=== PATIENT | male | born 1980 | race Caucasian/White ===

== ENCOUNTER 2016-12-06 00:10 | Inpatient (IN) | payer OTHER ==
[~2016-12-06] VITALS: Ht 170.2 cm; Wt 98.0 kg
[2016-12-06 00:18] VITALS: BP 151/101
--- NOTE | 2016-12-06 01:12 | NUR ---
PT TAKEN TO BED 7
--- NOTE | 2016-12-06 01:17 | NUR ---
PT IS A 36 Y/O MALE BIB FAM[facility] C/O LEFT FLANK PAIN X 3 WEEKS. PAIN OF 10/10 AND RADIATING TO THE FRONT AND THE BACK. STATED HX OF KIDNEY STONE. A&OX4. PERRL. BILATERAL LUNGS CLEAR. ALL EXTREMITIES ACTIVIE RANGE OF MOTION WNR. BOWEL SOUNDS HEARD FROM ALL QUADS. ER MADE AWARE.
--- NOTE | 2016-12-06 02:12 | NUR ---
Dr. Huber evaluating patient at bedside.
[2016-12-06] MEDS ORDERED: NACL 0.9% 1,000 ML IV ONE ×3 (02:15→03:45)
[2016-12-06] MEDS ORDERED: ONDANSETRON 4 MG/2 ML VIAL IVP ONE (02:15)
[2016-12-06] MEDS ORDERED: MORPHINE SULFATE 4 MG/ML SYR IVP ONE (02:15)
[2016-12-06 02:48] LABS: BASOPHILS # (AUTO) 0.2 K/uL (0.00-0.22); BASOPHILS % (AUTO) 1.8 % (0.0-2.0); EOSINOPHILS # (AUTO) 0.2 K/uL (0-0.4); EOSINOPHILS % (AUTO) 1.7 % (0.0-4.0); HEMATOCRIT 45.6 % (36-52); HEMOGLOBIN 15.3 g/dL (12.0-18.0); LYMPHOCYTES % (AUTO) 18.3 % (20.5-51.1); MEAN CORPUSCULAR HEMOGLOBIN 29 pg (27-31); MEAN CORPUSCULAR HGB CONC 34 g/dL (33-37); MEAN CORPUSCULAR VOLUME 86 fL (80-94); MONOCYTES # (AUTO) 0.6 K/uL (0.8-1.0); MONOCYTES % (AUTO) 5.1 % (1.7-9.3); NEUTROPHILS % (AUTO) 73.1 % (42.2-75.2); PLATELET COUNT (AUTO) 323 K/uL (140-450); RED BLOOD CELL COUNT(AUTO) 5.29 MIL/uL (4.20-6.10); RED CELL DISTRIBUTION WIDTH 12.1 % (11.6-13.7)
[2016-12-06 02:50] LABS: APPEARANCE,URINE CLEAR (CLEAR); BILIRUBIN,URINE NEGATIVE (NEGATIVE); BLOOD, URINE 2+ (NEGATIVE); COLOR,URINE YELLOW (YELLOW); LEUKOCYTE ESTERASE ,URINE NEGATIVE (NEGATIVE); NITRITE, URINE NEGATIVE (NEGATIVE); UGLUCOSE 3+ (NEGATIVE)
--- NOTE | 2016-12-06 02:54 | NUR ---
PT TAKEN TO CT
[2016-12-06] MEDS ORDERED: HYDROmorphone 1 MG/ML AMP IVP ONE ×2 (02:55→03:50)
[2016-12-06 02:58] LABS: RBC,URINE 11-20 (MOD) /HPF (0-5); WBC,URINE 0-5 (RARE) /HPF (0-5)
[2016-12-06 02:59] LABS: ANION GAP 8.6 (8-16); CARBON DIOXIDE 29.5 mmol/L (21-32); CREATININE 1.5 mg/dL (0.7-1.3); POTASSIUM 4.1 mmol/L (3.5-5.1); TOTAL BILIRUBIN 0.4 mg/dL (0.0-1.0)
--- NOTE | 2016-12-06 03:07 | NUR ---
PT RETURN FROM CT
[2016-12-06] MEDS ORDERED: cefTRIAXone 1,000 MG VIAL ONE (03:26)
--- NOTE | 2016-12-06 03:30 | NUR ---
PT RESTING IN BED. NO ACUTE DISTRESS NOTED. WILL CONTINUE TO MOTNITOR.
[2016-12-06] MEDS ORDERED: DEXTROSE 50% 50 ML SYR IVP PRN (04:10)
[2016-12-06] MEDS ORDERED: ACETAMINOPHEN 325 MG TAB PO PRN (04:10)
[2016-12-06] MEDS ORDERED: ONDANSETRON 4 MG/2 ML VIAL IM/IVP PRN (04:10)
[2016-12-06] MEDS ORDERED: HYDROcodone/APAP 7.5/325 MG 1 TAB PO PRN (04:10)
[2016-12-06] MEDS ORDERED: DOCUSATE SODIUM 100 MG GELCAP PO PRN (04:10)
[2016-12-06] MEDS ORDERED: MORPHINE SULFATE 2 MG/ML SYR IVP PRN (04:10)
--- NOTE | 2016-12-06 04:25 | NUR ---
Patient will be admitted to care of DR. MASCORRO. Admited to TELE. Will go to room 119B. Belongings list completed. Report GIVEN TO SHAY SMALL. PT VS STABLE AT THIS TIME.
--- NOTE | 2016-12-06 04:30 | NUR ---
PT ARRIVED ON UNIT VIA GURNEY IN STABLE CONDITION. NO S/S OF DISTRESS NOTED. PT CAME IN WITH CC OF L LOWER FLANK PAIN X3 WEEKS. PT IS AAO4 ON RA. IV TO R AC 18G INTACT AND INFUSING WELL. SKIN IS INTACT. RESPIRATIONS ARE EVEN AND UNLABORED. INITIAL ASSESSMENT COMPLETED, PLAN OF CARE DISCUSSED WITH PT, VERBALIZED UNDERSTANDING. ALL SAFETY PRECAUTIONS MET, CALL LIGHT WITHIN REACH, WILL CONTINUE TO MONITOR.
--- NOTE | 2016-12-06 04:50 | NUR ---
DR. MYERS IN TO SEE PT
[2016-12-06] MEDS: NACL 0.9% 1,000 ML IV SCH ×3 (05:01→20:04)
[2016-12-06] MEDS: DOCUSATE SODIUM 100 MG GELCAP PO SCH ×3 (05:01→20:14)
[2016-12-06 05:09] VITALS: BP 146/95
--- NOTE | 2016-12-06 05:15 | NUR ---
PT VOMITED 660 ML OF EMESIS. PT OFFERED ZOFRAN BUT REFUSED. PT EDUCATED ON RISKS AND BENEFITS AND VERBALIZED UNDERSTANDING.
[2016-12-06] MEDS ORDERED: HYDROmorphone PFS 2 MG/ML SYR IVP PRN (05:20)
[2016-12-06] MEDS: HYDROmorphone PFS 2 MG/ML SYR IVP PRN ×3 (06:19→20:36)
[2016-12-06] MEDS: INSULIN LISPRO SLIDING SCALE 100 UNITS/ML VIAL SUBQ PRN ×4 (06:27→20:47)
[2016-12-06] MEDS: BLOOD GLUCOSE MONITORING 1 DEV DEV FS SCH ×4 (06:29→20:35)
--- NOTE | 2016-12-06 07:29 | NUR ---
REPORT GIVEN TO DAY NURSE AT BEDSIDE, PT IN STABLE CONDITION NO S/S OF DISTRESS NOTED
[2016-12-06 07:30] LABS: PROTHROMBIN TIME 10.2 secs (10.8-13.4)
--- NOTE | 2016-12-06 07:32 | NUR ---
RECEIVED PT REPORT AT BEDSIDE FROM NIGHT NURSE. PT IS AAOX4 AND SHOWS NO S/S OF ACUTE DISTRESS ON ROOM AIR. PT SKIN INTACT. ON TELE MONITOR. IV NOTED ON THE R AC WITH IVF'S INFUSING WELL. PT STATES 3/10 LOWER LEFT FLANK PAIN THAT IS TOLERABLE. PT STATED LBM 12/05/16. PT WAS EXPLAINED POC FOR TODAY AND VERBALIZED UNDERSTANDING. PT'S BED IS LOWERED WITH CALL LIGHT WITHIN REACH. WILL CONTINUE TO MONITOR.
[2016-12-06 07:47] LABS: ANION GAP 13.4 (8-16); CARBON DIOXIDE 23.8 mmol/L (21-32); CREATININE 1.3 mg/dL (0.7-1.3); POTASSIUM 4.2 mmol/L (3.5-5.1)
[2016-12-06 07:57] LABS: CHOL/HDL RATIO 7.7 (1-4.5); FREE T4 (FREE THYROXINE) 0.98 ng/dL (0.76-1.46); MAGNESIUM 1.5 mg/dL (1.8-2.4); PHOSPHORUS 3.4 mg/dL (2.5-4.9); THYROID STIMULATING HORMONE 4.17 uIU/mL (0.34-3.74)
[2016-12-06 08:00] VITALS: BP 148/104
[2016-12-06] MEDS ORDERED: PROMETHAZINE 25 MG TAB PO PRN (08:35)
[2016-12-06] MEDS: LACTOBACILLUS RHAMNOSUS GG 1 EACH CAP PO SCH (08:58)
[2016-12-06] MEDS ORDERED: MAG SULF 2000 MG/WATER PREMIX 50 ML IV SCH (09:00)
--- NOTE | 2016-12-06 09:05 | NUR ---
ADMINISTERED SCHEDULED MEDICATIONS. PT IS NAUSEOUS AND VOMITING AND HAS PRN PHENERGAN HOWEVER WAS NOT GIVEN BC IS PO. NOTIFIED DR CARMONA TO CHANGE TO IV PRN NAUSEA/VOMITING MEDICATION FOR BETTER EFFICACY. DR TO PLACE ORDERS. PT'S NEEDS MET AT THIS TIME. MAGNESIUM IV INFUSING WELL. BED IN LOW POSITION WITH CALL LIGHT WITHIN REACH.
--- NOTE | 2016-12-06 10:06 | NUR ---
PATIENT HAS BEEN SCREENED AND CATEGORIZED HIGH NUTRITION RISK. PATIENT WILL BE SEEN WITHIN 1-2 DAYS OF ADMISSION. 12/06/16-12/07/[address]
[2016-12-06] MEDS: METOCLOPRAMIDE 10 MG/2 ML INJ VIAL IVP PRN ×2 (10:31→17:49)
--- NOTE | 2016-12-06 10:35 | NUR ---
PT C/O NAUSEA/VOMITING GAVE PRN MEDICATIONS REGLAN 5 MG IVP
--- NOTE | 2016-12-06 11:55 | NUR ---
PT C/O 7/10 LEFT FLANK PAIN MORPHINE 2 MG IVP WAS GIVEN. WILL REASSESS IN 30 MIN.
[2016-12-06 12:00] VITALS: BP 130/83
--- NOTE | 2016-12-06 12:25 | NUR ---
PT STATES NO CHANGE IN PAIN. DR IS AWARE. DR TO PLACE ORDERS. PT IS AWARE WILL HAVE TO WAIT FOR PAIN MEDICATION UNTIL NEW ORDERS ARE PLACED. PT AGREES AND VERBALIZED UNDERSTANDING.
[2016-12-06] MEDS ORDERED: TAMSULOSIN 0.4 MG CAP PO SCH (15:00)
[2016-12-06] MEDS ORDERED: KETOROLAC 15 MG/ML VIAL IVP SCH ×2 (15:14→18:00)
[2016-12-06 15:19] LABS: BASOPHILS # (AUTO) 0.1 K/uL (0.00-0.22); BASOPHILS % (AUTO) 1.4 % (0.0-2.0); EOSINOPHILS # (AUTO) 0.1 K/uL (0-0.4); EOSINOPHILS % (AUTO) 0.8 % (0.0-4.0); HEMATOCRIT 40.8 % (36-52); HEMOGLOBIN 13.4 g/dL (12.0-18.0); LYMPHOCYTES % (AUTO) 32.2 % (20.5-51.1); MEAN CORPUSCULAR HEMOGLOBIN 29 pg (27-31); MEAN CORPUSCULAR HGB CONC 33 g/dL (33-37); MEAN CORPUSCULAR VOLUME 87 fL (80-94); MONOCYTES # (AUTO) 0.6 K/uL (0.8-1.0); MONOCYTES % (AUTO) 6.8 % (1.7-9.3); NEUTROPHILS # (AUTO) 5.6 K/uL (1.8-7.7); NEUTROPHILS % (AUTO) 58.8 % (42.2-75.2); PLATELET COUNT (AUTO) 286 K/uL (140-450); RED CELL DISTRIBUTION WIDTH 12.1 % (11.6-13.7); WHITE BLOOD COUNT (AUTO) 9.4 K/uL (4.8-10.8)
--- NOTE | 2016-12-06 15:45 | NUR ---
ADMINISTERED DILAUDID 2 MG IVP AND TORADOL [address] MATHEW FAUST TO GIVE. WILL REASSESS IN 30 MIN.
[2016-12-06 16:00] VITALS: BP 121/78
--- NOTE | 2016-12-06 16:15 | NUR ---
PT IS SLEEPING AND SHOWS NO S/S OF ACUTE DISTRESS ON ROOM AIR.
--- NOTE | 2016-12-06 17:50 | NUR ---
PT C/O NAUSEA AND VOMITING ADMINISTERED REGLAN 5 MG IVP. DID NOT GIVE TORADOL 15 MG BC TOO SOON FROM PREVIOUS ADMINISTRATION OF MEDICATION AT 1545. PT STATES 3/10 LEFT FLANK PAIN THAT IS TOLERABLE. PT'S NEEDS ARE MET AT THIS TIME. THE BED IS IN LOW POSITION WITH CALL LIGHT WITHIN REACH WILL CONTINUE TO MONITOR
[2016-12-06] MEDS: KETOROLAC 15 MG/ML VIAL IVP SCH ×2 (18:00→23:22)
--- NOTE | 2016-12-06 19:25 | NUR ---
GAVE PT REPORT AT BEDSIDE TO NIGHT NURSE, PT ENDORSED IN STABLE CONDITION.
--- NOTE | 2016-12-06 19:27 | NUR ---
PATIENT REPORT RECEIVED FROM MORNING NURSE. PATIENT IS AWAKE, ALERT, AND ORIENTED. NO SIGNS AND SYMPTOMS OF DISTRESS NOTED. IV SITE NOTED ON RIGHT FOREARM. IVF INFUSING WELL. BED IN LOWEST POSITION, SIDE RAILS UP AND CALL LIGHT WITHIN REACH. WILL CONTINUE TO MONITOR.
[2016-12-06 20:00] VITALS: BP 122/79
[2016-12-07] VITALS: BP 125/79
[2016-12-07] MEDS: HYDROmorphone PFS 2 MG/ML SYR IVP PRN ×2 (00:43→04:05)
[2016-12-07] MEDS: NACL 0.9% 1,000 ML IV SCH (03:25)
[2016-12-07 04:00] VITALS: BP 126/75
[2016-12-07] MEDS: METOCLOPRAMIDE 10 MG/2 ML INJ VIAL IVP PRN (05:21)
[2016-12-07] MEDS: KETOROLAC 15 MG/ML VIAL IVP SCH (05:21)
--- NOTE | 2016-12-07 05:42 | NUR ---
PATIENT REFUSED TORADOL. HE STATED THAT "IT DOESN'T WORK" HE WANTS TO WAIT FOR HIS NEXT DUE DOSE OF PRN DILAUDID INSTEAD.
[2016-12-07 06:17] LABS: BASOPHILS # (AUTO) 0.2 K/uL (0.00-0.22); EOSINOPHILS # (AUTO) 0.2 K/uL (0-0.4); EOSINOPHILS % (AUTO) 2.2 % (0.0-4.0); HEMATOCRIT 41.4 % (36-52); HEMOGLOBIN 13.5 g/dL (12.0-18.0); LYMPHOCYTES # (AUTO) 3.4 K/uL (2.0-11.5); MEAN CORPUSCULAR HEMOGLOBIN 29 pg (27-31); MEAN CORPUSCULAR HGB CONC 33 g/dL (33-37); MEAN CORPUSCULAR VOLUME 88 fL (80-94); MONOCYTES # (AUTO) 0.5 K/uL (0.8-1.0); MONOCYTES % (AUTO) 6.6 % (1.7-9.3); NEUTROPHILS # (AUTO) 3.9 K/uL (1.8-7.7); NEUTROPHILS % (AUTO) 48.2 % (42.2-75.2); PLATELET COUNT (AUTO) 306 K/uL (140-450); RED BLOOD CELL COUNT(AUTO) 4.69 MIL/uL (4.20-6.10); RED CELL DISTRIBUTION WIDTH 12.3 % (11.6-13.7); WHITE BLOOD COUNT (AUTO) 8.2 K/uL (4.8-10.8)
[2016-12-07 06:20] LABS: T4 (THYROXINE) 6.8 ug/dL (4.5-12.0)
[2016-12-07] MEDS: INSULIN LISPRO SLIDING SCALE 100 UNITS/ML VIAL SUBQ PRN (06:25)
[2016-12-07 06:38] LABS: ANION GAP 10.9 (8-16); CARBON DIOXIDE 29.7 mmol/L (21-32); CREATININE 1.1 mg/dL (0.7-1.3); POTASSIUM 3.6 mmol/L (3.5-5.1)
[2016-12-07] MEDS: BLOOD GLUCOSE MONITORING 1 DEV DEV FS SCH (06:49)
--- NOTE | 2016-12-07 07:30 | NUR ---
PATIENT REPORT GIVEN TO MORNING NURSE. PATIENT IS IN STABLE CONDITION
--- NOTE | 2016-12-07 07:35 | NUR ---
RECEIVED PT REPORT AT BEDSIDE FROM NIGHT NURSE. PT IS AAOX4 AND SHOWS NO S/S OF ACUTE DISTRESS ON ROOM AIR. PT SKIN INTACT. ON TELE MONITOR. IV NOTED ON THE R AC WITH IVF'S INFUSING WELL. PT STATES 3/10 LOWER LEFT FLANK PAIN THAT IS TOLERABLE. PT STATED LBM 12/06/16. PT WAS EXPLAINED POC FOR TODAY AND VERBALIZED UNDERSTANDING. PT'S BED IS LOWERED WITH CALL LIGHT WITHIN REACH. WILL CONTINUE TO MONITOR.
[2016-12-07 07:56] VITALS: BP 129/77
[2016-12-07] MEDS ORDERED: HYDROcodone/APAP 7.5/325 MG 1 TAB PO SCH (08:00)
--- NOTE | 2016-12-07 08:00 | NUR ---
PT STATED HE WOULD LIKE TO BE DISCHARGED AND DR CARMONA WAS NOTIFIED. DR CARMONA WENT TO SEE PT AND PT STATED " NOTHING CAN BE DONE FOR ME HERE, THE PLAN IS TO MANAGE MY PAIN WITH [facility] AND I NEED THIS SURGERY TO BE DONE." DR CARMONA EXPLAINED TO PT THE OPTIONS WE GAVE HIM TO DO THE SURGERY OUTPATIENT AND CONTROL HIS PAIN WITH [facility] MEANWHILE SURGERY IS BEING PLANNED. PT WAS EXPLAINED THE BENEFITS OF CONTINUING HIS CARE AT [facility] AND THE RISKS IF HE CHOOSES TO LEAVE CALLENDER. PT VERBALIZED UNDERSTANDING OF THE RISKS AND BENEFITS AND INSISTS ON BEING DISCHARGED.
--- NOTE | 2016-12-07 08:10 | NUR ---
PT REFUSED TO SIGN AMA FORM.
[2016-12-07] MEDS ORDERED: TAMSULOSIN 0.4 MG CAP PO SCH ×3 (08:30)
[2016-12-07] MEDS: LACTOBACILLUS RHAMNOSUS GG 1 EACH CAP PO SCH (08:37)
[2016-12-07] MEDS: DOCUSATE SODIUM 100 MG GELCAP PO SCH (08:37)
--- NOTE | 2016-12-07 08:40 | NUR ---
PT LEFT AMA AND REFUSED TO SIGN PAPERWORK NOTED IN PREVIOUS NOTE. DR CARMONA SPOKE WITH PT AGAIN TO VERIFY RISKS AND BENEFITS OF HIS DECISION TO LEAVE AMA. PT STILL INSIST ON LEAVING AMA. IV WAS DISCONTINUED WITH CANNULA INTACT. TELE BOX AND WRISTBANDS WERE REMOVED.
== END 2016-12-07 08:40 | disposition left against medical advice (07) | DRG 871 ==
LOC: MED 00:10 → MTU 04:02
PROVIDERS: ADMIT Family Medicine; ATTEND Family Medicine
DX: A41.9 Sepsis, unspecified organism (principal); N17.0 Acute kidney failure with tubular necrosis; E83.52 Hypercalcemia; E11.65 Type 2 diabetes mellitus with hyperglycemia; D68.59 Other primary thrombophilia; E87.1 Hypo-osmolality and hyponatremia; N13.2 Hydronephrosis with renal and ureteral calculous obstruction; I10 Essential (primary) hypertension; I73.9 Peripheral vascular disease, unspecified; K57.90 Diverticulosis of intestine, part unspecified, without perforation or abscess without bleeding; E03.9 Hypothyroidism, unspecified; Z53.21 Procedure and treatment not carried out due to patient leaving prior to being seen by health care provider; Z90.49 Acquired absence of other specified parts of digestive tract
CPT/HCPCS: 36415; 80048; 80053; 81001; 82150; 82948; 83036; 83605; 83690; 83735; 83880; 84100; 84436; 84439; 84443; 84479; 84484; 85025; 85610; 85730; 87040; 87086; 93925; 93970; 96365; 96375; 96376; 99285; J0696; J1170; J1815; J1885; J2270; J2405; J2765; J3475; J7030; J7060; Q0092; Q0169

== ENCOUNTER 2020-03-24 05:52 | Day surgery (SDC) | payer OTHER, SELFPAY ==
[~2020-03-24] VITALS: Ht 170.2 cm; Wt 95.3 kg
[2020-03-24] MEDS ORDERED: BUPIVACAINE MPF 0.25% 10 ML VIAL INJ ONE (07:15)
[2020-03-24] MEDS ORDERED: LIDOCAINE MPF 2% 100 MG/5 ML VIAL INJ ONE ×2 (07:31→07:33)
[2020-03-24] MEDS ORDERED: KETOROLAC 30 MG/ML VIAL ONE (07:44)
[2020-03-24] MEDS ORDERED: MIDAZOLAM 2 MG/2 ML VIAL ONE (07:44)
[2020-03-24] MEDS ORDERED: fentaNYL citrate 0.05 MG/ML VIAL ONE (07:44)
[2020-03-24] MEDS ORDERED: PROPOFOL 200 MG/20 ML VIAL IV ONE (07:44)
[2020-03-24] MEDS ORDERED: LIDOCAINE 2% 100 MG/5 ML SYR IVP ONE (07:44)
[2020-03-24] MEDS ORDERED: LIDOCAINE 2% 1000 MG/50 ML VIAL INJ ONE (08:03)
[2020-03-24] MEDS ORDERED: ONDANSETRON 4 MG/2 ML VIAL IVP PRN (08:15)
[2020-03-24] MEDS ORDERED: MEPERIDINE 25 MG/ML SYR IVP PRN (08:15)
[2020-03-24] MEDS ORDERED: diphenhydrAMINE 50 MG/ML VIAL IVP PRN (08:15)
[2020-03-24] MEDS ORDERED: BLOOD GLUCOSE MONITORING 1 DEV DEV FS ONE (08:15)
[2020-03-24] MEDS ORDERED: oxyCODONE/APAP 5/325 MG 1 TAB TAB PO PRN (08:15)
[2020-03-24] MEDS ORDERED: LACTATED RINGERS 1,000 ML IV SCH (08:15)
== END 2020-03-24 10:00 | disposition home or self-care (01) ==
LOC: MOR 05:52 → MLD 06:16 → MFCC 06:55 → MOR 10:00
PROVIDERS: ATTEND Urology
DX: N47.1 Phimosis (principal); N47.7 Other inflammatory diseases of prepuce; I10 Essential (primary) hypertension; E11.9 Type 2 diabetes mellitus without complications; E66.9 Obesity, unspecified; Z20.828 Contact with and (suspected) exposure to other viral communicable diseases
CPT/HCPCS: 54161; 71046; J0690; J1885; J2001; J2250; J2704; J3010; J7060; U0003; J3490